=== PATIENT | male | born 1965 | race African-American/Black ===

== ENCOUNTER 2016-12-11 22:13 | Emergency (ER) | payer OTHER ==
[~2016-12-11] VITALS: Ht 172.7 cm; Wt 126.7 kg
[~2016-12-11 22:13] MED LIST: AMOX500T PO; CORTI10A AS; DIAZ5 PO; HYDR10TA16 PO
[2016-12-11 22:19] VITALS: BP 156/89; PULSE 58; RESP 16; TEMP 96.8; O2SAT 97
[2016-12-11] MEDS ORDERED: METO50TA PO (22:25)
[2016-12-11] MEDS ORDERED: NEOM1SOL17 RIGHT EAR (23:06)
[2016-12-11] MEDS ORDERED: AMOX875T PO (23:06)
--- NOTE | 2016-12-11 23:07 | PD ---
HPI Chief Complaint: Oral / Dental Pain or Problem Time Seen by Provider: 22:42 Travel History International Travel<30 days: No Contact w/Intl Traveler<30days: No Traveled to known affect area: No History of Present Illness HPI The patient is a 51-year-old male that complains of pain in tooth #2 for 2 days. He also developed a right ear pain which she feels a separate from the toothache. He denies any fever. He denies any allergies. He does have a history of hypertension and takes metoprolol for this. He also complains of pain in tooth #29. [facility] Past Medical History Diminished Hearing: No Hypertension: Yes Musculoskeletal: Yes (CHRONIC BACK PROBLEMS) Tetanus Vaccination: < 5 Years Influenza Vaccination: Yes Past Surgical History Tonsillectomy: Yes Other Surgery: Yes (1993--"FUSION OF L4,L5") Social History Alcohol Use: No Tobacco Use: No Substance Use: No Allergies-Medications (Allergen,Severity, Reaction): Coded Allergies: No Known Allergies (Verified , 12/11/16) Reported Meds & Prescriptions Reported Meds & Active Scripts Active Neomycin/Polymyxin/Hydroc 1 % (Xoqprlkp-Obtekqiff-Is (Otic)) 1 Maliha Maliha 3 Drop RIGHT EAR QID Amoxicillin 875 Mg Tab 875 Mg PO BID 10 Days Reported Metoprolol Tartrate 50 Mg Tab 50 Mg PO DAILY Review of Systems Except as stated in HPI: all other systems reviewed are Neg Physical Exam Narrative GENERAL: The patient is alert, oriented 3 in moderate apparent distress with his right dental pain and right earache. His vital signs show blood pressure 156/89 but are otherwise normal. SKIN: Focused skin assessment warm/dry. HEAD: Atraumatic. Normocephalic. EYES: Pupils equal and round. No scleral icterus. No injection or drainage. ENT: No nasal bleeding or discharge. Mucous membranes pink and moist. The right and left tympanic membranes are clear. The left canal is clear but the right canal is red and swollen and tender. NECK: Trachea midline. No JVD. CARDIOVASCULAR: Regular rate and rhythm. No murmur appreciated. RESPIRATORY: No accessory muscle use. Clear to auscultation. Breath sounds equal bilaterally. GASTROINTESTINAL: Abdomen soft, non-tender, nondistended. Hepatic and splenic margins not palpable. MUSCULOSKELETAL: No obvious deformities. No clubbing. No cyanosis. No edema. NEUROLOGICAL: Awake and alert. No obvious cranial nerve deficits. Motor grossly within normal limits. Normal speech. PSYCHIATRIC: Appropriate mood and affect; insight and judgment normal. DENTAL: No loose or chipped teeth. No malocclusion. Numerous missing teeth are present, there is tenderness over teeth #2 and 29. Pressure on this tooth reproduces the patient's pain. No TMJ tenderness is present. No drainable abscess is noted. Data Data Last Documented VS Vital Signs Date Time Temp Pulse Resp B/P Pulse Ox O2 Delivery O2 Flow Rate FiO2 12/11/16 22:19 96.8 58 16 156/89 97 Orders Ebelpsxt-Rmnqdlha-Bo Otic Soln (Cortispo (12/12/16 09:00) Wyxnvglc-Jxphsujr-Ef Otic Soln (Cortispo (12/11/16 23:15) Amoxicillin (Trimox) (12/11/16 23:15) MDM Medical Decision Making Medical Screen Exam Complete: Yes Emergency Medical Condition: Yes Medical Record Reviewed: Yes Differential Diagnosis Dental infection, TMJ pain, otitis externa, otitis media, drainable dental abscess Narrative Course There is no drainable abscess present. He does have dental infections and teeth #2 and #29. Diagnosis Primary Impression: Dental infection Additional Impression: Otitis externa of right ear Additional Instructions: The right ear infection is 3 drops 4 times daily in the right ear. The oral antibiotic is one tablet twice daily. Med/Other Pt SpecificInfo: Prescription(s) given Scripts Qjaykxfp-Ihdtwyqum-Dd (Otic) (Neomycin/Polymyxin/Hydroc 1 %)1 Maliha Sol3 Drop RIGHT EAR QID #1 BOTTLE Prov:Alan Love MD 12/11/16 Amoxicillin 875 Mg Stb688 Mg PO BID 10 Days Ref 0 Prov:Alan Love MD 12/11/16 Disposition: 01 DISCHARGE HOME Condition: Stable Alan Love MD Dec 11, 2016 23:07
[2016-12-11] MEDS ORDERED: NEOMYCIN/POLYMYXIN/HYDROCORT OTIC SOLN 10 ML BTL RIGHT EAR SCH (23:15)
[2016-12-11] MEDS ORDERED: AMOXICILLIN 875 MG TAB PO ONE (23:15)
[2016-12-11] MEDS ORDERED: IBUP800T23 PO (23:23)
[2016-12-11] MEDS ORDERED: KETOROLAC TROMETHAMINE 60 MG/2 ML (IM) VIAL IM ONE (23:30)
[2016-12-12] MEDS ORDERED: NEOMYCIN/POLYMYXIN/HYDROCORT OTIC SOLN 10 ML BTL RIGHT EAR SCH (09:00)
== END 2016-12-11 23:25 | disposition home or self-care (01) ==
LOC: PHED 22:13
DX: K04.7 Periapical abscess without sinus (principal); H60.91 Unspecified otitis externa, right ear; I10 Essential (primary) hypertension; Z87.39 Personal history of other diseases of the musculoskeletal system and connective tissue
CPT/HCPCS: 99283; J1885

== ENCOUNTER 2017-07-04 12:02 | Emergency (ER) | payer OTHER ==
[~2017-07-04] VITALS: Ht 170.2 cm; Wt 132.0 kg
[~2017-07-04 12:02] MED LIST changes: -AMOX500T PO; +AMOX875T PO; -CORTI10A AS; -DIAZ5 PO; -HYDR10TA16 PO; +IBUP1TAB7 PO; +METO50TA PO; +NEOM1SOL17 RIGHT EAR
[2017-07-04 12:24] VITALS: BP 197/95; PULSE 70; RESP 18; TEMP 98.4; O2SAT 96
[2017-07-04] MEDS ORDERED: TRAM50TA PO (12:46)
--- NOTE | 2017-07-04 13:38 | RADRPT ---
EXAM DATE/TIME: 07/04/2017 13:26 [facility] COMPARISON: No previous studies available for comparison. INDICATIONS : Right foot pain today, no known injury. pain worse top of foot and lateral side MEDICAL HISTORY : Hypertension. SURGICAL HISTORY : None. ENCOUNTER: Initial ACUITY: 1 day PAIN SCORE: 9/10 LOCATION: Right foot FINDINGS: Three view examination of the right foot demonstrates no soft tissue swelling, dislocation, or fractu re. The tarsal bones appear intact. The interphalangeal and metatarsophalangeal joints are intact. The calcaneus is intact. Bony mineralization is normal. CONCLUSION: Unremarkable exam with no underlying bony abnormality. Michael Polo MD on July 04, 2017 at 13:35 Board Certified Radiologist. This report was verified electronically.
[2017-07-04] MEDS ORDERED: KETOROLAC TROMETHAMINE 60 MG/2 ML (IM) VIAL IM ONE (13:45)
--- NOTE | 2017-07-04 13:45 | PD ---
HPI Chief Complaint: Injury Time Seen by Provider: 13:23 Travel History International Travel<30 days: No Contact w/Intl Traveler<30days: No Traveled to known affect area: No History of Present Illness HPI 51-year-old male presents to the ED for evaluation of 8/10 foot pain. Pain is constant, worsened by ambulation. No alleviating factors reported. Onset this morning when he got up and took his first few steps. States that he treated with meloxicam around 5:30 and has been able to the lip throughout the course of the day but has had no real improvement of his symptoms. He denies acute injury to the area or recent overuse. He denies previous injury to the area, numbness, tingling, weakness, limitations to range of motion of the extremity. Never had a pain like this in the past. PFSH Past Medical History Diminished Hearing: No Hypertension: Yes Musculoskeletal: Yes (CHRONIC BACK PROBLEMS) ?: Not Past Surgical History Tonsillectomy: Yes Other Surgery: Yes (1993--"FUSION OF L4,L5") Social History Alcohol Use: No Tobacco Use: No Substance Use: No Allergies-Medications (Allergen,Severity, Reaction): Coded Allergies: No Known Allergies (Verified Adverse Reaction, Unknown, 07/04/17) Reported Meds & Prescriptions Reported Meds & Active Scripts Active Naproxen 500 Mg Tab 500 Mg PO BID Reported Tramadol (Tramadol HCl) 50 Mg Tab 50 Mg PO Q8H PRN Metoprolol Tartrate 50 Mg Tab 50 Mg PO DAILY Review of Systems Except as stated in HPI: all other systems reviewed are Neg Physical Exam Narrative GENERAL: Obese white male in no acute distress. SKIN: Focused skin assessment warm/dry. HEAD: Normocephalic. EYES: No scleral icterus. No injection or drainage. NECK: Supple, trachea midline. No JVD or lymphadenopathy. CARDIOVASCULAR: Regular rate and rhythm without murmurs, gallops, or rubs. RESPIRATORY: Breath sounds equal bilaterally. No accessory muscle use. GASTROINTESTINAL: Abdomen soft, non-tender, nondistended. MUSCULOSKELETAL: No cyanosis, or edema. Focused right lower extremity exam: 2+ DP pulse. Tender to palpation of the entire plantar surface of the foot. Pain with flexion and extension of the ankle. Squeeze test negative. No malleolar, navicular or base of the fifth tenderness. Patient is able to wiggle the toes and weakly flex and extend the ankle. Neurovascularly intact to light touch distally. BACK: Nontender without obvious deformity. No CVA tenderness. Data Data Last Documented VS Vital Signs Date Time Temp Pulse Resp B/P (MAP) Pulse Ox O2 Delivery O2 Flow Rate FiO2 07/04/17 12:24 98.4 70 18 197/95 (129) 96 Orders Orders Foot, Complete (Ffh2qwb) (07/04/17 12:54) Ice/Cold Pack (07/04/17 12:54) Ketorolac Inj (Toradol Inj) (07/04/17 13:45) Ed Discharge Order (07/04/17 13:48) [facility] Medical Decision Making Medical Screen Exam Complete: Yes Emergency Medical Condition: Yes Differential Diagnosis Osteoarthritis versus plantar fasciitis versus gout versus other Narrative Course 51-year-old male presents to the ED for evaluation of 8/10 foot pain. Onset this morning when he got up and took his first few steps. He denies acute injury to the area or recent overuse. He denies previous injury to the area, numbness, tingling, weakness, limitations to range of motion of the extremity. Vitals reviewed. He has tenderness to palpation of the entire plantar surface. I suspect this is plantar fasciitis. X-ray of the foot was performed which revealed no acute bony injury. Patient is instructed to wear supportive shoes. He is prescribed a short course of anti-inflammatories. He should follow-up with a tab machine operator for further evaluation. He indicated understanding of instructions and is agreeable care plan. He is stable and discharged home. Diagnosis Primary Impression: Plantar fasciitis of right foot Referrals: Magda Giang DPM Patient Instructions: General Instructions, Plantar Fasciitis (ED), Plantar Fasciitis Exercises (ED) Additional Instructions: Wear supportive shoes. Rest, ice, elevate the extremity. Apply ice no longer than 10-15 minutes per hour a few times a day. Naproxen twice a day as prescribed to reduce inflammation and pain, begin tomorrow. Return to normal, gentle activity as tolerated. No running, jumping activities for the next few weeks. Follow up with the tab machine operator as discussed. Return to the ED for any urgent or emergent medical condition. Med/Other Pt SpecificInfo: Prescription(s) given Scripts Naproxen (Naproxen) 500 Mg Tab 500 MG PO BID, #10 TAB 0 Refills Prov: Kyler Lopez MD 07/04/17 Disposition: 01 DISCHARGE HOME Condition: Stable Alejandrina Catalan Jul 04, 2017 13:45
[2017-07-04] MEDS ORDERED: NAPR500T2 PO (13:48)
== END 2017-07-04 14:08 | disposition home or self-care (01) ==
LOC: PHEFT 12:02
DX: M72.2 Plantar fascial fibromatosis (principal); I10 Essential (primary) hypertension
CPT/HCPCS: 73630; 96372; 99284; J1885

== ENCOUNTER → 2017-08-10 | Day surgery (SDC) | payer OTHER ==
[~2017-08-10] VITALS: Ht 172.7 cm; Wt 131.2 kg
[~2017-08-10] MED LIST changes: +*ONDANSETRON 4 MG VIAL PERIprocedural Use ONLY ONE; +*PROMETHAZINE 25 MG/ML VIAL PERIprocedural use ONLY ONE; +*morphine SULFATE 4 MG/ML PERIprocedure ONLY ONE; +ACETAMINOPHEN/HYDROcodone 325 MG/10 MG TAB ONE; +AMLO10TA2 PO; -AMOX875T PO; +BETAMETHASONE SOD PHOS/ACETATE SUSP 30 MG/5 ML VIAL ONE; +BUPIVACAINE/EPINEPHRINE 0.25% 50 ML VIAL ONE; +CHLORHEXIDINE GLUCONATE 2 % 1 PACK (2 CLOTHS) TOPICAL PRN; +CHLORHEXIDINE GLUCONATE 4% SOLN 120 ML BTL TOPICAL SCH; +DO NOT ADM ANY ANTICOAGULANT DRUGS PRN; +FLUT50SP EACH NARE; +GELATIN 12 MM/7 MM FOAM ONE; +GENTAMICIN SULFATE 80 MG/2 ML VIAL ONE; +HYDR-3366 PO; +HYDR25TA5 PO; -IBUP1TAB7 PO; +LACTATED RINGER'S 1000 ML IV PRN; +LISI10TA3 PO; +METOPROLOL TARTRATE 25 MG TAB PO PRN; +NAPR500T2 PO; -NEOM1SOL17 RIGHT EAR; +OMEP20TA93 PO; +POVIDONE IODINE 5% (ANTISEPSIS KIT) 4 APPLICATIONS EACH NARE PRN; +SODIUM CHLORID 0.9% 500 ML IV PRN; +SUGAMMADEX SODIUM 200 MG/2 ML VIAL IV PUSH ONE; +TRAM50TA PO; +ceFAZolin 2 GM PREMIX 50 ML IV SCH
--- NOTE | 2017-08-10 15:55 | PD.OP ---
cc: Christiano Hylton. Operative Report Date of Surgery: Aug 10, 2017 Preoperative Diagnosis: Herniated nucleus pulposus L4 5, right, sequestered. Right L5 radiculopathy Morbid obesity Postoperative Diagnosis: Same Procedure: Lumbar laminectomy from the right L4, L5, lateral recess decompression, resection herniated nucleus pulposis. Use of dilation port and microscope Anesthesia: Gen. Surgeon: Christiano Hylton Discharging Machine Operator(s): SETH Horan Operation and Findings: EBL: 50 cc INDICATION: Is patient is a 51-year-old male with a previous history of lumbar laminectomy at the L4 5 level from the left side. Patient presents with severe radiating right hip and leg pain with weakness. Investigative studies shows evidence of a large sequestered disc herniation to the right extending below the disc space consistent with a sequestered disc herniation. He presents for surgical treatment. NOTE: Anca Horan PA-C was present for the entire surgical procedure as my first aid teacher. In my medical opinion her skill and care was necessary for the proper management of this patient. PROCEDURE: The patient was brought to the operating room and anesthetized in the supine position. The patient was rolled to a prone position on a Dick frame on a Sancho table. All pressure points were protected in the back was scrubbed with alcohol followed by Hibiclens followed by ChloraPrep and draped sterilely. A timeout was done and antibiotics were given. AP and lateral radiographic images were used to identify the proper levels and perform skin markings. We started from the right side at the L4 5 level. A paramedian incision was made and an off-midline fascial incision was made. A dilating system was placed down to the interlaminar space and held provisionally to the side of the table. The microscope was brought into the field. A high-speed bur under the microscope was used to perform a predominantly right sided laminectomy from that side. A lateral recess decompression involving the medial portion of the facet was accomplished using straight and angled Kerrison punches. There was a very large disc herniation extending below the disc space. This was completely decompressed A partial medial facetectomy was accomplished. The crossing and exiting nerve roots were completely decompressed. The wound was irrigated copiously. A small piece of Gelfoam with Celestone was placed into the epidural space. Hemostasis was controlled. The deep fascia was approximated with interrupted 0 Vicryl suture subcutaneous suture with 2-0 Vicryl suture and skin with running intradermal 3-0 Vicryl followed by Dermabond. A field block with local anesthesia was utilized. A sterile dressing was applied. The sponge count and needle counts and instrument counts were all correct. The patient tolerated the procedure well as taken to the recovery room in satisfactory condition. FINDINGS: There was evidence of a large ruptured disc Adolph below the disc space. A moderate amount of scar tissue was encountered. The final decompression was excellent. NOTE: This patient surgery was technically very difficult. From the time the patient entered the room until the surgery was started to almost an hour and 45 minutes. The patient is 288 pounds 5 foot 8 and a very large frame. His weight caused a fatigue of the first frame requiring us to use a second frame. Because of such large size, we used a 90 mm retractor. This patient's case because of technical difficulty and extra length of surgery simply because of his size necessitates us to charge more than normal because of the time necessary for myself and my staff to properly care for him. We took almost 3-1/ 2 hours to perform a single one-sided laminectomy. Christiano Hylton MD Aug 10, 2017 15:55
--- NOTE | 2017-08-10 16:41 | RADRPT ---
EXAM DATE/TIME: 08/10/2017 14:46 [facility] COMPARISON: No previous studies available for comparison. INDICATIONS : L4-L5 laminectomy. MEDICAL HISTORY : Non-responsive SURGICAL HISTORY : Non-responsive ENCOUNTER: Initial ACUITY: 1 day PAIN SCORE: Non-responsive. LOCATION: Bilateral lumbar spine FINDINGS: A single lateral view of the lower lumbar region is recorded digitally in the operating room using C- arm. A metallic plate is in place. CONCLUSION: Intraoperative image. Eduardo Vergara MD on August 10, 2017 at 16:38 Board Certified Radiologist. This report was verified electronically.
[2017-08-10 18:10] VITALS: BP 143/81; PULSE 65; RESP 18; TEMP 98; O2SAT 100
--- NOTE | 2017-08-10 18:47 | EKG ---
Date Performed: 08/10/2017 Time Performed: 08:39:25 PTAGE: 51 years EKG: SINUS BRADYCARDIA MODERATE VOLTAGE CRITERIA FOR LVH, CONSIDER NORMAL VARIANT NONSPECIFIC T- WAVE ABNORMALITY BORDERLINE ECG Since the prior tracing, there has been no significant change PREVIOUS TRACING : 10/03/2008 15.41 DOCTOR: Ping Costa Interpretating Date/Time 08/10/2017 18:44:32
== END | disposition home or self-care (01) ==
LOC: HSDC 07:54
PROVIDERS: ATTEND Orthopaedic Surgery Orthopaedic Surgery of the Spine
DX: M51.16 Intervertebral disc disorders with radiculopathy, lumbar region (principal); E66.01 Morbid (severe) obesity due to excess calories; Z68.41 Body mass index [BMI] 40.0-44.9, adult; M54.5 Low back pain; M25.551 Pain in right hip; I10 Essential (primary) hypertension; M79.661 Pain in right lower leg
CPT/HCPCS: 00630; 63047; 72020; 76000; 93005; J0702; J1580; J2270; J2405; J2550; J3010; J7120